=== PATIENT | male | born 1985 ===

== ENCOUNTER 2020-03-16 08:22 | Day surgery (SDC) | payer SELFPAY ==
[2020-03-13 07:20] VITALS: BMI 33.5
[2020-03-16] VITALS (9 sets, daily range): BP systolic 110–124; BP diastolic 67–84; PULSE 51–63; RESP 15–20; TEMP 35.8–36.5; O2SAT 96–100
[2020-03-16] MEDS: sodium chloride 0.9% 1,000 ML 30 ML IV (08:55)
--- NOTE | 2020-03-16 09:14 | ANES.PREANE2 ---
Pre-Anesthetic Assessment Pre-Anesthetic Assessment: Height/Weight: Height 1.75 m Weight 102.965 kg Temp Pulse Resp BP Pulse Ox 96.5 F L 52 L 18 123/80 99 03/16/20 08:39 03/16/20 08:39 03/16/20 08:39 03/16/20 08:39 03/16/20 08:39 Preop Diagnosis: Symptomatic cholelithiasis Proposed Procedure: Operation Date: 03/16/20 09:45 Proposed Procedures p Laparoscopic Cholecystectomy K80.20(Not Applicable) - Bobby August MD Was Beta Celien taken within 24 hours: N/A Last intake: Intake Last Liquid Date 03/16/20 Last Liquid Time 00:00 Last Solid Date 03/15/20 Last Solid Time 23:30 Social: Social History: No alcohol and No tobacco Exam: Pre-Anes Outpt Exam: alert, oriented x 3, clear to auscultation bilaterally and regular rate & rhythm Additional Exam Findings (including area of procedure): Airway: Submandibular: WNL Cervical ROM: WNL MP: 1 History/ROS: No significant history except as noted Pulmonary: Pulmonary: None reported CV/HEM: CV/HEM: None reported : : None reported Hepatic: Hepatic: None reported GI: GI: None reported Metabolic: Metabolic: None reported Musc/skel: Musc/skel: None reported Neuropsych: Neuropsych: None reported Anesthetic Plan: ASA status: 1 Anesthesia: General Meds/Allergies Current Medications: Current Medications Generic Name Dose Route Start Last Admin Trade Name Freq PRN Reason Stop Dose Admin Sodium Chloride 1,000 mls @ 30 ml s/hr 03/16/20 08:15 03/16/20 08:55 Sodium Chloride 0.9% IV 03/17/20 08:14 30 mls/hr .Q24H VICENTA Administration PFSH Anesthesia PFSH: Medical History Cholelithiasis Family History Father Diabetes Other CAD (coronary artery disease) Denies family history of Anesthesia complication Bleeding disorder Cancer Social History Smoking and tobacco status: current every day smoker Alcohol intake: never Household members: family Marital status: Single Current occupational status: employed History of recent travel: No Data Anesthesia Cardiac Studies: No Data to Display
--- NOTE | 2020-03-16 09:24 | W.PM.OPSUD ---
Surgery/Procedure H&P Update DATE OF PROCEDURE: March 16, 2020 DATE H&P PERFORMED: 03/05/20 H&P UPDATE INFORMATION: I have reviewed H&P completed within last 30 days, I have examined patient prior to procedure and No changes to prior documentation PREOP DIAGNOSIS: Symptomatic cholelithiasis PRIMARY INDICATION FOR PROCEDURE: The same PLANNED PROCEDURE: Operation Date: 03/16/20 09:45 Proposed Procedures p Laparoscopic Cholecystectomy K80.20(Not Applicable) - Bobby August MD
[2020-03-16] MEDS: lidocaine 2% INJ 20 mL INJECTION (09:36)
[2020-03-16 09:43] LABS: Hemoglobin 15.3 g/dL (11.7-16.6); Mean Corpuscular HGB Conc 33.3 g/dL (30.0-36.0); Mean Corpuscular Hemoglobin 34.3 pg (28.0-34.0); Mean Corpuscular Volume 103.1 fL (80-94); Mean Platelet Volume 11.3 fL (7.4-10.4); Platelet Count 215 10^3/cmm (130-400); Red Blood Count 4.46 10^6/uL (4.1-5.3); Red Cell Distribution Width 12.2 % (12.1-15.1); White Blood Count 7.5 10^3/uL (4.0-10.0)
[2020-03-16 09:54] LABS: Alanine Aminotransferase 23 U/L (0-41); Albumin Level 4.2 g/dL (3.5-5.2); Alkaline Phosphatase 86 IU/L (40-130); Anion Gap 13.9 (5-19); Aspartate Amino Transferase 19 U/L (0-40); Blood Urea Nitrogen 12 mg/dL (6-20); Carbon Dioxide 27 mmol/L (22-29); Chloride 102 mmol/L (98-107); Globulin 2.8 g/dL (1.3-4.6); Glomerular Filtration Rate 111.3 mL/min (90-130); Glucose 94 mg/dL (65-115); Osmolality Calculated 284 mOsm/kg (285-295); Potassium 3.9 mmol/L (3.5-5.1); Sodium 139 mmol/L (136-145); Total Bilirubin 0.2 mg/dL (0.15-1.2)
[2020-03-16 11:03] LABS: Absolute Segmented Neutrophil 2.8 10/cmm (1.6-7.1); Segmented Neutrophils 37 %; Total Cells Counted 100 (0-100)
[2020-03-16 11:04] LABS: Absolute Eosinophils 0.3 10^3/cmm (0.0-0.7); Band Neutrophils Absolute 0.5 10^3/cmm (0.0-1.2); Eosinophils 5 %; Lymphocytes 48 %; Monocytes Absolute 0.2 10^3/cmm (0.1-0.6)
[2020-03-16 11:31] LABS: Absolute Neutrophil 3.3 10^3/cmm (1.4-6.5); Platelet Estimate Normal (Normal)
--- NOTE | 2020-03-16 11:33 | PM.OP ---
Operative Report Date of procedure: March 16, 2020 Pre-op Diagnosis: Symptomatic cholelithiasis Post-op Diagnosis: Acute on top of chronic calculus cholecystitis Procedure Done: Laparoscopic cholecystectomy and intra-abdominal drain placement Implants: 15 [place] round Radames drain Specimens removed/disposition: Gallbladder and contents Surgeon: Bobby August Hand Inserter Operator: Surgical effie Gr and Jesus Circulating nurses Faviola Cruz Anesthesia: General (supervisor plastering Smart) Estimated blood loss (mL): 25 Findings: Omental encasement of the dome of the gallbladder Extensive scarring including Dave's pouch cystic duct and cystic artery Multiple traversing vessels Endoloop PDS applied onto adherent omentum White load 45 mm dividing the vascular omentum encasing the gallbladder dome No evidence of involvement of the colon with the gallbladder Large faceted stones Condition: stable Disposition: same day Brief History: Plan of care; After thorough history physical examination and reviewing the chart ,I counseled the patient for laparoscopic cholecystectomy possible open, indications risks including but not limited injury to the common bile duct and other viscera.benefits and alternatives all discussed with the patient, and she did agree to proceed. All questions have been answered and all concerns have been addressed to patient's satisfaction. Rationale was carefully and clearly discussed with the patient.Appropriate informed consent have been reviewed and signed. Procedure: Patient was identified in the holding area and taken back to the operative suite, placed in supine position intubated by anesthesia . Time-out was done verifying the patient's name/date of /planned procedure and destination after the procedure, all were in agreement. SCDs confirmed to be functioning, preoperative antibiotics administered per protocol, and beta jose protocol was confirmed. Patient was appropriately secured to the table, footboard was applied to the OR table, before prep and drape anesthesia was asked to tilt the table back and forth to make sure that the patient is appropriately secured and she was. Prep and drape of the abdomen was done under the usual sterile technique, followed by that supraumbilical skin incision,skin incision was done by a 15 blade knife, and stay sutures were applied to the fascia and Tyson trocar technique was used to enter the abdominal without injuring any abdominal viscera, started by low flow gas insufflation followed by a high flow, started with a 10 mm laparoscope and under direct vision there was no evidence of any injuries, the scope then switched to a 30? ,10 millimeter scope and under direct visualization 5 millimeter trocar was inserted in the epigastric region followed by two 5 mm trocars were inserted in the right upper quadrant that was done after injection of local lidocaine 2% at all incision sites. Gallbladder showed acute calculus cholecystitis with extensive edema &with adhesions. Patient was then positioned in the head up and tilted to the left Omental adhesions were taken down that revealed a sealed perforation of the dome of the gallbladder, I elected at this point to fire vascular load for appropriate hemostasis onto the vascular omentum. There was no involvement of the colon with the gallbladder inflammatory process. There was some oozing from residual omentum nearby I elected to apply an Endoloop PDS. Ratcheted forceps were introduced into the lateral most 5mm port and was applied unto the fundus of the gallbladder cephalad and using Bullet forceps the infundibulum of the gallbladder was retracted laterally. Using [place] forceps then L-hook cautery to dissect the peritoneum overlying the Calot's triangle which was then opened medially and laterally until the cystic duct and the cystic artery were skeletonized. Dissection was carried along the body of the gallbladder and after ensuring critical view of safety was identfied. Cystic duct and cystic artery where seen connected to the gallbladder. Clips were applied on the cystic duct towards the common bile duct 1 towards the gallbladder then divided is in sharp scissors, 2 clips were then applied onto the cystic artery and 1 towards the gallbladder and divided by sharp scissors. There were multiple traversing vessels that they were clipped as well and divided Dissection was then carried along of the gallbladder from the gallbladder fossa using cautery as well as sharp dissection with heat energy. The gallbladder then was dissected out from the gallbladder fossa totally , cholecystectomy was then achieved and was placed in an Endo Catch bag and then retrieved from the Tyson trocar site under direct visualization using a 5 mm 30? scope through the epigastric trocar, specimen was then passed to the circulating nurse to go for permanent pathology,irrigation and hemostasis was done to the gallbladder fossa after hemostasis was secured, final survey laparoscopy was done that showed no injuries.Suction irrigation was obtained using 3 L of warm saline. The supraumbilical fascial defect was then closed using interrupted Vicryl sutures using a fascial closure device ;Chapito Mark under direct visualization. Due to the extensive scarring and dissection. I elected to place a 15 [place] round Radames drain at the gallbladder fossa and I brought this through the far lateral 5 mm trocar, and the drain was secured by 3-0 silk x2 to the abdominal wall. Gas was allowed to deflate,Trocars were then taken out under direct vision there was no evidence of bleeding Specimen was passed to the circulating nurse for permanent pathology. The supraumbilical incision as well as all trocar sites were closed by by 4-0 Monocryl to approximate the skin edges of the supraumbilical incision, dressing was applied in the form of surgical glue and the patient patient got extubated and was taken to recovery area in a stable condition. Count of sponges,needles and instruments were completed at the end of the procedure I was present for the whole entire procedure.
[2020-03-16] MEDS: fentaNYL 50 mcg/mL INJ 2mL IVP (11:51)
--- NOTE | 2020-03-16 12:11 | SUR.PHASEI ---
1206 PATIENT TO OPS. DENIES NAUSEA, TOLERATING ICE CHIPS. PAIN IMPROVED. DRAIN SECURED TO RIGHT ABDOMEN.
[2020-03-16] MEDS: HYDROcodone-acetaminophen 5-325 mg Tablet 1 TAB PO (12:20)
== END 2020-03-16 13:05 | disposition home or self-care (01) ==
PROVIDERS: PCP Physician Assistant Medical; Visit Provider Surgery
PROC: 0FT44ZZ Resection of Gallbladder, Percutaneous Endoscopic Approach (ICD-10-PCS; CPT 47562; principal; 2020-03-16 09:45)
DX: K80.10 Calculus of gallbladder with chronic cholecystitis without obstruction (principal); Z82.49 Family history of ischemic heart disease and other diseases of the circulatory system; Z83.3 Family history of diabetes mellitus; F17.210 Nicotine dependence, cigarettes, uncomplicated
CPT/HCPCS: 47562; 12345; 80053; 85007; 85027; 88304; J0131; J0690; J1100; J2405; J2704; J3010; J3490; J7030

== ENCOUNTER 2020-03-23 10:22 | Outpatient (CLI) | payer SELFPAY ==
[2020-03-23 11:00] LABS: Alanine Aminotransferase 25 U/L (0-41); Albumin Level 4.3 g/dL (3.5-5.2); Alkaline Phosphatase 83 IU/L (40-130); Anion Gap 9.7 (5-19); Aspartate Amino Transferase 19 U/L (0-40); Blood Urea Nitrogen 9 mg/dL (6-20); Calcium 9.1 mg/dL (8.5-10.5); Carbon Dioxide 30 mmol/L (22-29); Chloride 105 mmol/L (98-107); Globulin 2.7 g/dL (1.3-4.6); Glomerular Filtration Rate 97.2 mL/min (90-130); Glucose 82 mg/dL (65-115); Osmolality Calculated 287 mOsm/kg (285-295); Potassium 3.7 mmol/L (3.5-5.1); Sodium 141 mmol/L (136-145); Total Bilirubin 0.2 mg/dL (0.15-1.2)
== END 2020-03-23 10:23 | disposition home or self-care (01) ==
LOC: LAB 10:22
PROVIDERS: PCP Physician Assistant Medical; Visit Provider Surgery
DX: K80.20 Calculus of gallbladder without cholecystitis without obstruction (principal)
CPT/HCPCS: 80053